=== PATIENT | female | born 1990 | race Caucasian/White ===

== ENCOUNTER 2021-07-11 11:11 | Emergency (ER) | payer OTHER ==
[~2021-07-11] VITALS: Ht 177.8 cm; Wt 60.3 kg
[2021-07-11 11:20] VITALS: BP 128/68
--- NOTE | 2021-07-11 11:31 | NUR ---
The patient is c/o sorethroat x 2 weeks, was seen at urgent care on oral antibiotic. Will continue to monitor the patient.
[2021-07-11] MEDS ORDERED: DEXAMETHASONE 1 MG TABLET PO ONE (13:00)
[2021-07-11] MEDS ORDERED: DEXAMETHASONE 4 MG TABLET ONE (13:05)
[2021-07-11] MEDS ORDERED: DEXAMETHASONE 1 MG TABLET ONE (13:05)
--- NOTE | 2021-07-11 13:20 | NUR ---
URINE SPECIMEN COLLECTED AND SENT TO LAB.
--- NOTE | 2021-07-11 13:54 | NUR ---
STREP SCREEN AND THROAT CULTURE SWABS DONE AND SENT TO THE LAB
[2021-07-11] MEDS ORDERED: CEFD300C3 PO (15:43)
[2021-07-11] MEDS ORDERED: MAG30ORA GT (15:43)
--- NOTE | 2021-07-11 15:57 | NUR ---
Patient discharged to home in stable condition. Written and verbal after care instructions given. Patient verbalizes understanding of instruction.
== END 2021-07-11 15:57 | disposition home or self-care (01) ==
LOC: ER 11:14
DX: J02.9 Acute pharyngitis, unspecified (principal)
CPT/HCPCS: 84703; 87070 ×2; 87880; 99283; J8540 ×2; 86403-TC